=== PATIENT | male | born 1955 | race Caucasian/White ===

== ENCOUNTER 2019-05-03 16:13 | Emergency (ER) | payer MEDICAID ==
[~2019-05-03] VITALS: Ht 167.6 cm; Wt 67.1 kg
[2019-05-03 16:35] VITALS: BP 105/64
--- NOTE | 2019-05-03 16:37 | NUR ---
TO LOBBY A/W BED , AMBULATORY
--- NOTE | 2019-05-03 18:03 | NUR ---
PT AMBULATED TO BED 04
--- NOTE | 2019-05-03 18:05 | NUR ---
BIB DAUGHTER. PT AAO X4. PER DAUGHTER, PT COULDN'T SLEEP AT NIGHT AND VERBALIZES THAT THE PT'S NOSE IS CLOGGED AND CANNOT FULLY BREATHE. DEV LUNGS CLEAR UPON AUSCULTATION. O2 SAT 98% RA. PT HAS A HX OF ANXIETY WITH UNKNOWN MEDS. PT PLACED ON FULL TAIL EDGER. HOB UP. BED SIDE RAILS UP X1. ER TO EVALUATE PT.
[2019-05-03 19:20] VITALS: BP 100/66
== END 2019-05-03 19:20 | disposition home or self-care (01) ==
LOC: MED 16:13
DX: F41.9 Anxiety disorder, unspecified (principal); G47.00 Insomnia, unspecified; E11.9 Type 2 diabetes mellitus without complications; Z76.0 Encounter for issue of repeat prescription
CPT/HCPCS: 82948; 99283